=== PATIENT | female | born 1950 | race Caucasian/White ===

== ENCOUNTER 2016-08-29 16:12 | Observation (INO) | payer MEDICARE, OTHER ==
[2016-08-29] VITALS (10 sets, daily range): BP systolic 157–219; BP diastolic 79–97; PULSE 57–79; RESP 16–20; TEMP 97.4–97.6; O2SAT 95–98
[~2016-08-29] VITALS: Ht 157.5 cm; Wt 72.5 kg
[~2016-08-29 16:12] MED LIST: ADVI200T PO; CETI10 PO; HYDR-3534 PO; METO50TA PO; PROT40TA PO; SIMV80TA PO; ZOFR4TAB3 SL
--- NOTE | 2016-08-29 16:21 | PD ---
Physical Exam Date Seen by Provider: Aug 29, 2016 Time Seen by Provider: 16:19 Narrative 66 year old female presents to the emergency department for dizziness, feeling as if the room is spinning around her. She states it is relieved with staying still, worse with movement. She had associated HTN and vomiting. She states she has had this before and was diagnosed with vertigo. She denies any CP/SOB. Vital signs reviewed. Patient awaiting bed placement. Data Data Last Documented VS Vital Signs Date Time Temp Pulse Resp B/P Pulse Ox O2 Delivery O2 Flow Rate FiO2 08/29/16 16:16 60 20 219/97 97 Room Air [facility] Supervised Visit with BALTAZAR: Nereida Gonzales Aug 29, 2016 16:21
[2016-08-29] MEDS ORDERED: SODIUM CHLORIDE 0.9% FLUSH 10 ML FLUSH IVF PRN (17:00)
[2016-08-29] MEDS ORDERED: hydrALAZINE HCL 20 MG/ML VIAL IV PUSH ONE ×2 (17:00→18:15)
[2016-08-29 17:32] LABS: AUTOMATED NEUTROPHIL # 4.1 TH/MM3 (1.8-7.7); BASOPHIL # 0.1 TH/MM3 (0-0.2); BASOPHIL % 0.8 % (0.0-2.0); EOSINOPHIL # 0.2 TH/MM3 (0-0.4); EOSINOPHIL % 2.8 % (0.0-4.0); HEMATOCRIT 40.4 % (35.0-46.0); HEMO FLAGS DIFF FINAL; LYMPH % 26.5 % (9.0-44.0); LYMPHOCYTE # 1.7 TH/MM3 (1.0-4.8); MEAN CELL VOLUME 89.9 FL (80.0-100.0); MEAN CORPUSCULAR HEMOGLOBIN 30.5 PG (27.0-34.0); MONO % 6.7 % (0.0-8.0); NEUT % 63.2 % (16.0-70.0); PLATELET COUNT 167 TH/MM3 (150-450); RED BLOOD COUNT 4.49 MIL/MM3 (4.00-5.30); RED CELL DISTRIBUTION WIDTH 13.1 % (11.6-17.2); WHITE BLOOD COUNT 6.4 TH/MM3 (4.0-11.0)
--- NOTE | 2016-08-29 17:34 | PD ---
HPI Chief Complaint: Dizziness Time Seen by Provider: 16:50 Travel History International Travel<30 days: No Contact w/Intl Traveler<30days: No Traveled to known affect area: No History of Present Illness HPI Patient is a 66-year-old female who presents emergency evaluation for an episode where she became dizzy, diaphoretic, nauseated. Patient has vomited once. Her blood pressure was elevated when she was assessed at work and she reported a dull headache. Patient has had a history of dizziness however when it occurred the last time she was hypotensive due to medication changes. Patient continues to feel dizzy. She denies any chest pain, shortness of breath , weakness, numbness, confusion, slurred speech. Patient is present with her daughter. PFSH Past Medical History High Cholesterol: Yes Gastrointestinal Disorders: Yes (gerd) GERD: Yes Hiatal Hernia: Yes Hypertension: Yes Tetanus Vaccination: < 5 Years Influenza Vaccination: Yes ?: Not Past Surgical History Abdominal Surgery: Yes (tl hysterectomy right hemicholectomy) Gynecologic Surgery: Yes ( t.l ) Hysterectomy: Yes (TOTAL) Other Surgery: Yes Social History Alcohol Use: Yes (OCCASIONAL) Tobacco Use: No Substance Use: No Allergies-Medications (Allergen,Severity, Reaction): Coded Allergies: Norvasc (Verified Allergy, Severe, swell, 02/04/16) Penicillin (Verified Allergy, Severe, HIVES, 02/04/16) Vasotec (Verified Allergy, Mild, not allergic pt states gave incorrectly, 02/04/16) Reported Meds & Prescriptions Reported Meds & Active Scripts Active Reported Irbesartan 150 Mg Tab 150 Mg PO DAILY Zocor (Simvastatin) 40 Mg Tab 40 Mg PO DAILY Protonix (Pantoprazole Sodium) 40 Mg Tab 40 Mg PO DAILY Lopressor (Metoprolol Tartrate) 50 Mg Tab 50 Mg PO DAILY Zyrtec Allergy (Cetirizine HCl) 10 Mg Cap 10 Mg PO DAILY Review of Systems Except as stated in HPI: all other systems reviewed are Neg HENT: Positive: Headaches Cardiovascular: Positive: Diaphoresis, No: Chest Pain or Discomfort Gastrointestinal: Positive: Nausea, Vomiting Neurologic: Positive: Weakness, Dizziness Physical Exam Narrative GENERAL: Well-developed, well-nourished, alert elderly female. Resting comfortably in no acute distress. SKIN: Focused skin assessment warm/dry. HEAD: Atraumatic. Normocephalic. EYES: Pupils equal and round. No scleral icterus. No injection or drainage. ENT: No nasal bleeding or discharge. Mucous membranes pink and moist. NECK: Trachea midline. No JVD. CARDIOVASCULAR: Regular rate and rhythm. No murmur appreciated. RESPIRATORY: No accessory muscle use. Clear to auscultation. Breath sounds equal bilaterally. GASTROINTESTINAL: Abdomen soft, non-tender, nondistended. Hepatic and splenic margins not palpable. MUSCULOSKELETAL: No obvious deformities. No clubbing. No cyanosis. No edema. NEUROLOGICAL: Awake and alert. No obvious cranial nerve deficits. Motor grossly within normal limits. Normal speech. PSYCHIATRIC: Appropriate mood and affect; insight and judgment normal. 5 Data Data Last Documented VS Vital Signs Date Time Temp Pulse Resp B/P Pulse Ox O2 Delivery O2 Flow Rate FiO2 08/29/16 18:50 68 18 161/79 98 Room Air 08/29/16 16:46 97.4 Orders Electrocardiogram (08/29/16 16:50) Complete Blood Count With Diff (08/29/16 16:50) Comprehensive Metabolic Panel (08/29/16 16:50) Magnesium (Mg) (08/29/16 16:50) Ckmb (Isoenzyme) Profile (08/29/16 16:50) Troponin I (08/29/16 16:50) Act Partial Throm Time (Ptt) (08/29/16 16:50) Prothrombin Time / Inr (Pt) (08/29/16 16:50) Urinalysis - C+S If Indicated (08/29/16 16:50) Ecg Monitoring (08/29/16 16:50) Iv Access Insert/Monitor (08/29/16 16:50) Oximetry (08/29/16 16:50) Sodium Chloride 0.9% Flush (Ns Flush) (08/29/16 17:00) Hydralazine Inj (Apresoline Inj) (08/29/16 17:00) CKMB (08/29/16 16:56) CKMB% (08/29/16 16:56) Hydralazine Inj (Apresoline Inj) (08/29/16 18:15) Chest, Single Ap (08/29/16 ) Admit Order (Ed Use Only) (08/29/16 19:26) Labs Laboratory Tests Test 4/14/17 4/14/17 16:56 17:22 White Blood Count 6.4 TH/MM3 Red Blood Count 4.49 MIL/MM3 Hemoglobin 13.7 GM/DL Hematocrit 40.4 % Mean Corpuscular Volume 89.9 FL Mean Corpuscular Hemoglobin 30.5 PG Mean Corpuscular Hemoglobin 34.0 % Concent Red Cell Distribution Width 13.1 % Platelet Count 167 TH/MM3 Mean Platelet Volume 8.5 FL Neutrophils (%) (Auto) 63.2 % Lymphocytes (%) (Auto) 26.5 % Monocytes (%) (Auto) 6.7 % Eosinophils (%) (Auto) 2.8 % Basophils (%) (Auto) 0.8 % Neutrophils # (Auto) 4.1 TH/MM3 Lymphocytes # (Auto) 1.7 TH/MM3 Monocytes # (Auto) 0.4 TH/MM3 Eosinophils # (Auto) 0.2 TH/MM3 Basophils # (Auto) 0.1 TH/MM3 CBC Comment DIFF FINAL Differential Comment Prothrombin Time 10.5 SEC Prothromb Time International 1.0 RATIO Ratio Activated Partial 22.2 SEC Thromboplast Time Sodium Level 141 MEQ/L Potassium Level 3.8 MEQ/L Chloride Level 102 MEQ/L Carbon Dioxide Level 27.7 MEQ/L Anion Gap 11 MEQ/L Blood Urea Nitrogen 19 MG/DL Creatinine 0.85 MG/DL Estimat Glomerular Filtration 67 ML/MIN Rate Random Glucose 124 MG/DL Calcium Level 9.3 MG/DL Magnesium Level 1.5 MG/DL Total Bilirubin 0.4 MG/DL Aspartate Amino Transf 30 U/L (AST/SGOT) Alanine Aminotransferase 40 U/L (ALT/SGPT) Alkaline Phosphatase 89 U/L Total Creatine Kinase 180 U/L Creatine Kinase MB 1.7 NG/ML Troponin I LESS THAN 0.02 NG/ML Total Protein 7.6 GM/DL Albumin 4.2 GM/DL Urine Color YELLOW Urine Turbidity CLEAR Urine pH 6.5 Urine Specific [place] 1.015 Urine Protein NEG mg/dL Urine Glucose (UA) NEG mg/dL Urine Ketones NEG mg/dL Urine Occult Blood NEG Urine Nitrite NEG Urine Bilirubin NEG Urine Urobilinogen LESS THAN 2.0 MG/DL Urine Leukocyte Esterase LARGE Urine WBC 3 /hpf Urine Squamous Epithelial 7 /hpf Cells Urine Bacteria FEW /hpf Urine Hyaline Casts 1 /lpf Microscopic Urinalysis Comment CULT NOT INDICATED MDM Medical Decision Making Medical Screen Exam Complete: Yes Emergency Medical Condition: Yes Interpretation(s) Vital Signs Date Time Temp Pulse Resp B/P Pulse Ox O2 Delivery O2 Flow Rate FiO2 08/29/16 16:55 96 Room Air 08/29/16 16:46 55 20 97 Room Air 08/29/16 16:46 97.4 59 20 186/88 98 Room Air 08/29/16 16:16 60 20 219/97 97 Room Air Differential Diagnosis Vertigo versus TIA versus arrhythmia versus electrolyte abnormality versus other Narrative Course Patient is a 66-year-old female presenting to emergency evaluation after a syncopal episode today. Patient was dizzy, nauseated, vomited her blood pressure was elevated. On arrival her blood pressure continued to be marginally elevated, she was given hydralazine 10 mg IV 1. Her blood pressure continued to be elevated and a second dose was given. CBC is unremarkable Troponin is less than 0.02 Chemistry is unremarkable Coags are unremarkable Urinalysis unremarkable Chest x-ray shows no acute disease. The patient's symptoms, possible cardiac etiology, patient will be kept under observation. Patient is agreeable to plan. Dr. Pantoja accepted admission. Diagnosis Primary Impression: Postural dizziness with presyncope Admitting Information Admitting Physician Requests: Observation Condition: Stable Loren Lora [facility] Aug 29, 2016 17:34
[2016-08-29 17:43] LABS: BACTERIA, URINE FEW /hpf; BLOOD, URINE NEG (NEG); COMMENT (UR) CULT NOT INDICATED; CULTURE IF INDICATED CULT NOT INDICATED; GLUCOSE,URINE NEG (NEG); HYALINE CAST, URINE 1 /lpf (RARE); KETONE, URINE NEG (NEG); NITRITE,URINE NEG (NEG); PH, URINE 6.5 (5.0-8.5); SQUAMOUS EPITHELIAL CELL URINE 7 /hpf (0-5); URINE COLOR YELLOW (YELLW/STRAW)
[2016-08-29 17:45] LABS: APTT (PATIENT) 22.2 SEC (24.3-30.1); PROTHROMBIN TIME - PATIENT 10.5 SEC (9.8-11.6)
[2016-08-29 18:08] LABS: ALKALINE PHOSPHATASE 89 U/L (45-117); ALT (GPT) 40 U/L (10-53); CREATINE KINASE 180 U/L (26-192); TOTAL BILIRUBIN ADULT 0.4 MG/DL (0.2-1.0)
[2016-08-29 18:15] LABS: ANION GAP 11 MEQ/L (5-15); AST (GOT) 30 U/L (15-37); BICARBONATE 27.7 MEQ/L (21.0-32.0); BLOOD UREA NITROGEN 19 MG/DL (7-18); CHLORIDE 102 MEQ/L (98-107); GLOMERULAR FILTRATION RATE 67 ML/MIN (>89); MAGNESIUM 1.5 MG/DL (1.5-2.5); POTASSIUM 3.8 MEQ/L (3.5-5.1); SODIUM (NA) 141 MEQ/L (136-145)
[2016-08-29 18:20] LABS: CKMB 1.7 NG/ML (0.5-3.6)
[2016-08-29] MEDS ORDERED: ZYRT10CA PO (18:36)
[2016-08-29] MEDS ORDERED: METO-309 PO (18:36)
[2016-08-29] MEDS ORDERED: IRBE150T15 PO (18:36)
[2016-08-29] MEDS ORDERED: ZOCO40TA PO (18:36)
[2016-08-29] MEDS ORDERED: PROT40TA PO (18:36)
--- NOTE | 2016-08-29 19:17 | RADRPT ---
EXAM DATE/TIME: 08/29/2016 18:45 [facility] COMPARISON: No previous studies available for comparison. INDICATIONS : Syncope. MEDICAL HISTORY : Hypertension. Hypercholesterolemia. Gastroesophageal reflux disease. SURGICAL HISTORY : None. ENCOUNTER: Initial ACUITY: 1 day PAIN SCORE: 0/10 LOCATION: Bilateral chest FINDINGS: Retrocardiac double density is present consistent with hiatal hernia. Heart size is borderline. Media stinal contours and pulmonary vascularity are normal. There is no evidence of focal infiltrate or ple ural effusion. Multiple screws transfix the proximal left humerus. CONCLUSION: No acute disease Wali Concepcion MD on August 29, 2016 at 19:15 Board Certified Radiologist. This report was verified electronically.
--- NOTE | 2016-08-29 19:36 | HHI.HP ---
[facility] Tyson Seth MD Admission Diagnosis [place] Diagnoses: (1) Dizziness Diagnosis: Principal (2) UTI (urinary tract infection) Diagnosis: Principal (3) HTN (hypertension) Diagnosis: Principal Travel History International Travel<30 Days: No Contact w/Intl Traveler <30 Da: No Traveled to Known Affected Are: No History of Present Illness This is a 66-year-old female with a PMH of HTN, Hyperlipidemia and GERD who presented to the ER with complaints of dizziness in addition to episode of nausea and vomiting x1. Reports history of similar symptoms in the past, however related to vertigo. On arrival, BP 219/97, HR 60, O2 sat 97% on RA, Afebrile. CBC unremarkable. Chemistry essentially unremarkable except for GFR 67. Troponin negative. INR 1.0. UA with large LE and bacteriuria. CXR with no acute findings. S/p Hydralazine 10mg IV x2, BP currently 157/80, HR 75. Review of Systems Except as stated in HPI: all other systems reviewed are Neg ROS: 14 point review of systems otherwise negative. Past Family Social History Past Medical History PMH: HTN, Hyperlipidemia and GERD Past Surgical History PAST SURGICAL HISTORY: Hysterectomy, Right Hemicolectomy, ORIF Allergies: Coded Allergies: Norvasc (Verified Allergy, Severe, swell, 02/04/16) Penicillin (Verified Allergy, Severe, HIVES, 02/04/16) Vasotec (Verified Allergy, Mild, not allergic pt states gave incorrectly, 02/04/16) Family History PAST FAMILY HISTORY: Reviewed. No h/o DM or CAD Social History PAST SOCIAL HISTORY: Occasional alcohol. Negative for tobacco or drugs. Physical Exam Vital Signs Vital Signs Date Time Temp Pulse Resp B/P Pulse Ox O2 Delivery O2 Flow Rate FiO2 08/29/16 18:50 68 18 161/79 98 Room Air 08/29/16 18:20 60 18 195/88 98 Room Air 08/29/16 17:28 57 18 188/82 97 Room Air 08/29/16 16:55 96 Room Air 08/29/16 16:46 55 20 97 Room Air 08/29/16 16:46 97.4 59 20 186/88 98 Room Air 08/29/16 16:16 60 20 219/97 97 Room Air Physical Exam PE: GENERAL: Pleasant middle-aged white female in no acute distress. HEENT: PERRLA, EOMI. No scleral icterus or conjunctival pallor. No lid lag or facial droop. CARDIOVASCULAR: Regular rate and rhythm. No obvious murmurs to auscultation. No chest tenderness to palpation. RESPIRATORY: No obvious rhonchi or wheezing. Clear to auscultation. Breath sounds equal bilaterally. GASTROINTESTINAL: Abdomen soft, non-tender, nondistended. BS normal. MUSCULOSKELETAL: Extremities without clubbing, cyanosis, or edema. No obvious deformities. NEUROLOGICAL: Awake, alert and oriented x4. No focal neurologic deficits. Moving both upper and lower extremities spontaneously. Laboratory Laboratory Tests Test 08/29/16 08/29/16 16:56 17:22 White Blood Count 6.4 Red Blood Count 4.49 Hemoglobin 13.7 Hematocrit 40.4 Mean Corpuscular Volume 89.9 Mean Corpuscular Hemoglobin 30.5 Mean Corpuscular Hemoglobin 34.0 Concent Red Cell Distribution Width 13.1 Platelet Count 167 Mean Platelet Volume 8.5 Neutrophils (%) (Auto) 63.2 Lymphocytes (%) (Auto) 26.5 Monocytes (%) (Auto) 6.7 Eosinophils (%) (Auto) 2.8 Basophils (%) (Auto) 0.8 Neutrophils # (Auto) 4.1 Lymphocytes # (Auto) 1.7 Monocytes # (Auto) 0.4 Eosinophils # (Auto) 0.2 Basophils # (Auto) 0.1 CBC Comment DIFF FINAL Differential Comment Prothrombin Time 10.5 Prothromb Time International 1.0 Ratio Activated Partial 22.2 Thromboplast Time Sodium Level 141 Potassium Level 3.8 Chloride Level 102 Carbon Dioxide Level 27.7 Anion Gap 11 Blood Urea Nitrogen 19 Creatinine 0.85 Estimat Glomerular Filtration 67 Rate Random Glucose 124 Calcium Level 9.3 Magnesium Level 1.5 Total Bilirubin 0.4 Aspartate Amino Transf 30 (AST/SGOT) Alanine Aminotransferase 40 (ALT/SGPT) Alkaline Phosphatase 89 Total Creatine Kinase 180 Creatine Kinase MB 1.7 Troponin I LESS THAN 0.02 Total Protein 7.6 Albumin 4.2 Urine Color YELLOW Urine Turbidity CLEAR Urine pH 6.5 Urine Specific [place] 1.015 Urine Protein NEG Urine Glucose (UA) NEG Urine Ketones NEG Urine Occult Blood NEG Urine Nitrite NEG Urine Bilirubin NEG Urine Urobilinogen LESS THAN 2.0 Urine Leukocyte Esterase LARGE Urine WBC 3 Urine Squamous Epithelial 7 Cells Urine Bacteria FEW Urine Hyaline Casts 1 Microscopic Urinalysis Comment CULT NOT INDICATED Result Diagram: 08/29/16165508/29/161655 Assessment and Plan Problem List: (1) Dizziness ICD Code: R42 Status: Acute (2) UTI (urinary tract infection) ICD Code: N39.0 Status: Acute (3) HTN (hypertension) ICD Code: I10 Status: Acute Assessment and Plan A/P: 1. Dizziness: h/o vertigo, likely compounded by UTI/dehydration. IVF, meclizine prn. Ambulate as tolerated. 2. UTI: U/a w/ large LE and bacteriuria, start IV Abx, IVF, repeat labs in am. 3. HTN: Uncontrolled. BP 219/97, HR 60 on arrival, s/p Hydralazine 10mg IV x2 , repeat BP currently 157/80, HR 75. Will monitor. Resume home medications. 4. DVT Prophylaxis: SCD/Teds. 5. Social work for d/c planning as needed. 6. Case discussed w/ ER physician at length. Earlene Pantoja MD Aug 29, 2016 19:36
[2016-08-29] MEDS ORDERED: BISACODYL 10 MG SUPP RECTAL PRN (19:45)
[2016-08-29] MEDS ORDERED: ACETAMINOPHEN/HYDROcodone 325 MG/5 MG TAB PO PRN (19:45)
[2016-08-29] MEDS ORDERED: ONDANSETRON HCL 4 MG/2 ML VIAL IVP PRN (19:45)
[2016-08-29] MEDS ORDERED: SODIUM CHLORIDE 0.9% FLUSH 10 ML FLUSH IV FLUSH PRN (19:45)
[2016-08-29] MEDS ORDERED: ACETAMINOPHEN 325 MG TAB PO PRN (19:45)
[2016-08-29] MEDS ORDERED: MORPHINE SULFATE 4 MG/ML INJ IV PRN (19:45)
[2016-08-29] MEDS ORDERED: CIPROFLOXACIN 400 MG PREMIX 200 ML IV SCH (20:00)
[2016-08-29] MEDS: SODIUM CHLOR 0.9% 1000 ML INJ 1,000 ML IV SCH (20:41)
[2016-08-29] MEDS: SODIUM CHLORIDE 0.9% FLUSH 10 ML FLUSH IV FLUSH SCH (21:00)
[2016-08-30] MEDS ORDERED: MECLIZINE HCL 25 MG TAB PO PRN (00:45)
[2016-08-30 04:30] VITALS: BP 165/79; PULSE 82; RESP 20; TEMP 98; O2SAT 95
[2016-08-30] MEDS: SODIUM CHLOR 0.9% 1000 ML INJ 1,000 ML IV SCH (05:32)
[2016-08-30 08:00] VITALS: BP 185/80; PULSE 80; RESP 20; TEMP 97.6; O2SAT 95
[2016-08-30 08:26] LABS: AUTOMATED NEUTROPHIL # 6.4 TH/MM3 (1.8-7.7); BASOPHIL % 0.3 % (0.0-2.0); EOSINOPHIL # 0.1 TH/MM3 (0-0.4); EOSINOPHIL % 0.9 % (0.0-4.0); HEMATOCRIT 42.5 % (35.0-46.0); HEMO FLAGS DIFF FINAL; LYMPH % 20.6 % (9.0-44.0); LYMPHOCYTE # 1.9 TH/MM3 (1.0-4.8); MEAN CELL VOLUME 90.8 FL (80.0-100.0); MEAN CORPUSCULAR HEMOGLOBIN 30.4 PG (27.0-34.0); MEAN CORPUSCULAR HGB CONC 33.5 % (32.0-36.0); MONO % 9.8 % (0.0-8.0); NEUT % 68.4 % (16.0-70.0); PLATELET COUNT 117 TH/MM3 (150-450); RED BLOOD COUNT 4.68 MIL/MM3 (4.00-5.30); RED CELL DISTRIBUTION WIDTH 13.5 % (11.6-17.2); WHITE BLOOD COUNT 9.3 TH/MM3 (4.0-11.0)
[2016-08-30 08:27] LABS: ALT (GPT) 37 U/L (10-53); ANION GAP 11 MEQ/L (5-15); AST (GOT) 21 U/L (15-37); BLOOD UREA NITROGEN 13 MG/DL (7-18); CHLORIDE 102 MEQ/L (98-107); GLOMERULAR FILTRATION RATE 78 ML/MIN (>89); SODIUM (NA) 139 MEQ/L (136-145)
--- NOTE | 2016-08-30 08:28 | HHI.PR ---
Subjective Remarks Follow up for dizziness with diaphoresis and associated nausea and vomiting. Patient states that while at work she felt dizzy, followed by diaphoresis and associated nausea and vomiting. Patient states that BP was checked at that time and it was 170/90's. During the episode of diaphoresis she denied any chest pain , shortness of breath or focal weakness. Does admit to taking home medications in the morning. Also states that she did have more caffeine that morning than usual and consumed a large amount of salty foods. Patient did have one bout of vomiting overnight, but no more nausea and wants to eat. Denies any recent fever , chills, and cough. Patient denies any new medical complaints. Objective Vitals Vital Signs Date Time Temp Pulse Resp B/P Pulse Ox O2 Delivery O2 Flow Rate FiO2 08/30/16 04:30 98.0 82 20 165/79 95 08/29/16 23:58 97.6 75 20 157/80 96 08/29/16 22:33 76 20 186/91 95 08/29/16 21:01 97.5 79 20 202/88 96 08/29/16 20:00 68 16 165/79 96 Room Air 08/29/16 18:50 68 18 161/79 98 Room Air 08/29/16 18:20 60 18 195/88 98 Room Air 08/29/16 17:28 57 18 188/82 97 Room Air 08/29/16 16:55 96 Room Air 08/29/16 16:46 55 20 97 Room Air 08/29/16 16:46 97.4 59 20 186/88 98 Room Air 08/29/16 16:16 60 20 219/97 97 Room Air I/O 08/29/16 08/29/16 08/29/16 08/30/16 08/30/16 08/30/16 07:00 15:00 23:00 07:00 15:00 23:00 Intake Total 200 ml 1000 ml Balance 200 ml 1000 ml Intake IV Total 200 ml 1000 ml Result Diagram: 08/30/16 0727 08/30/16 07 Imaging Last Impressions Chest X-Ray 08/29/16 0000 Signed Impressions: Service Date/Time: Monday, August 29, 2016 18:45 - CONCLUSION: No acute disease Wali Concepcion MD Objective Remarks GENERAL: Well-nourished, well-developed female patient in NAD. SKIN: Warm and dry. No rash. HEENT: Normocephalic. Atraumatic. Pupils equal and round. No scleral icterus. Mucous membranes pink and moist. NECK: Supple. Trachea midline. CARDIOVASCULAR: Regular rate and rhythm. S1, S2 noted. No murmur appreciated. RESPIRATORY: No accessory muscle use. Clear to auscultation. Breath sounds equal bilaterally. GASTROINTESTINAL: Abdomen soft, non-tender, nondistended. Normoactive bowel sounds x4. MUSCULOSKELETAL: No obvious deformities. Extremities without clubbing, cyanosis , or edema. NEUROLOGICAL: Awake and alert. No obvious cranial nerve deficits. Motor grossly within normal limits. 5/5 muscle strength in bilateral upper and lower extremities. Normal speech. PSYCHIATRIC: Appropriate mood and affect; insight and judgment normal. Urinary Catheter: No Vascular Central Line Catheter: No A/P Assessment and Plan Ms. Kang is a 66-year-old female with a known history of hypertension who presented to the ER with complaints of dizziness followed by diaphoresis and associated nausea and vomiting. Dizziness with associated diaphoresis, nausea and vomiting suspects secondary to elevated BP -Denies further n/v. Tolerating PO fluids, dc IVF. -Encourage PO fluid intake, heart healthy diet. -Encourage ambulation -Zofran PRN Hypertension -Continue home medications, Cozaar and Metoprolol 50 mg BID. -Start HCTZ 25 mg daily. -Clonidine 0.1 mg PO one dose now and PRN. -Increased BP overnight, with use of PRN hydralazine. Monitor closely. -Encourage compliance with heart healthy and low sodium diet. -Limit caffeine. Previously suspected UTI in ED: UA with evidence with contaminants. Patient asymptomatic denies any urinary complaints. Cipro IV previously given in ED. No further antibiotics at this time. DVT prophylaxis: SCDs Discharge Planning Will monitor BP throughout the day. If controlled will dc this afternoon. Medical Decision Making MDM Remarks The exam, history, and the medical decision-making described in the above note were completed with the assistance of the mid-level provider. I reviewed and agree with the findings presented. I attest that I had a [id number] encounter with the patient on the same day, and personally performed and documented my assessment and findings in the medical record. Patient has no further dizziness. Blood pressure is still elevated. She has not had any chest pain, chest pressure, shortness of breath or syncope. No cardiac history. She states she has a wrist blood pressure cuff at home but that her PCP recommended a arm band monitor. The patient was recently started on ilbesartan. She has never been on HCTZ. She has no history of gout or renal insufficiency. The patient is agreeable to starting on HCTZ. Will also prescribe clonidine to be used if needed for systolic blood pressures greater than 160. I recommended she follow-up with her primary care physician this week and that she check her blood pressure daily and bring that list to her primary care physician. Karen Davies Aug 30, 2016 08:28 Nirali Lucas MD Aug 30, 2016 10:39
[2016-08-30 08:29] LABS: ALKALINE PHOSPHATASE 88 U/L (45-117); TOTAL BILIRUBIN ADULT 0.6 MG/DL (0.2-1.0)
[2016-08-30] MEDS ORDERED: cloNIDine HCL 0.1 MG TAB PO PRN (08:45)
[2016-08-30 08:59] LABS: POTASSIUM 3.2 MEQ/L (3.5-5.1)
[2016-08-30] MEDS ORDERED: cloNIDine HCL 0.1 MG TAB PO ONE (09:00)
[2016-08-30] MEDS ORDERED: PRAVASTATIN SOD 80 MG TAB PO SCH (09:00)
[2016-08-30] MEDS ORDERED: METOPROLOL TARTRATE 50 MG TAB PO SCH ×2 (09:00)
[2016-08-30] MEDS: SODIUM CHLORIDE 0.9% FLUSH 10 ML FLUSH IV FLUSH SCH ×2 (09:00→09:10)
[2016-08-30] MEDS ORDERED: CETIRIZINE HCL 10 MG TAB PO SCH (09:00)
[2016-08-30] MEDS ORDERED: NITROFURANTOIN MONOHYD MACROCR 100 MG CAP PO SCH (09:00)
[2016-08-30] MEDS ORDERED: HYDROCHLOROTHIAZIDE 25 MG TAB PO SCH (09:00)
[2016-08-30] MEDS ORDERED: PANTOPRAZOLE SOD 40 MG DELAYED RELEASE TAB PO SCH (09:00)
[2016-08-30] MEDS ORDERED: LOSARTAN 50 MG TAB PO SCH (09:00)
[2016-08-30] MEDS ORDERED: METOPROLOL TARTRATE 25 MG TAB PO SCH (09:00)
[2016-08-30 11:36] VITALS: BP 147/70; PULSE 59; RESP 20; TEMP 98.7; O2SAT 94
[2016-08-30 13:29] VITALS: PULSE 73
[2016-08-30] MEDS ORDERED: HYDR25TA5 PO (13:43)
[2016-08-30] MEDS ORDERED: METO-309 PO (13:43)
[2016-08-30] MEDS ORDERED: CLON.1 PO (13:43)
--- NOTE | 2016-08-30 15:25 | EKG ---
Date Performed: 08/29/2016 Time Performed: 17:17:02 PTAGE: 66 years EKG: SUPRAVENTRICULAR BRADYCARDIA BORDERLINE LEFT AXIS DEVIATION INCOMPLETE RIGHT BUNDLE BRANCH BLOCK MODERATE VOLTAGE CRITERIA FOR LVH, CONSIDER NORMAL VARIANT ABNORMAL RHYTHM ECG PREVIOUS TRACING 02/04/2016 09.27.04 Compared to previous tracing, QRS voltage is somewhat gre ater, incomplete right bundle branch block is new. DOCTOR: Vince Mcgregor Interpretating Date/Time 08/30/2016 15:23:50
== END 2016-08-30 14:58 | disposition home or self-care (01) ==
LOC: NEPD 16:12 → NEDA 19:28 → NEPGCP 20:58
PROVIDERS: ADMIT Family Medicine; ATTEND Family Medicine
DX: N39.0 Urinary tract infection, site not specified (principal); I10 Essential (primary) hypertension; E78.00 Pure hypercholesterolemia, unspecified; K21.9 Gastro-esophageal reflux disease without esophagitis; Z88.0 Allergy status to penicillin; Z88.8 Allergy status to other drugs, medicaments and biological substances
CPT/HCPCS: 71010; 80053; 81001; 82550; 82552; 83735; 84484; 85025; 85610; 85730; 93005; 96374; 96376; 99285; G0378; J0360; J0744; J7030